=== PATIENT | female | born 1960 | race Caucasian/White ===

== ENCOUNTER 2022-10-12 18:15 | Emergency (ER) | payer OTHER, SELFPAY ==
[2022-10-12] VITALS (8 sets, daily range): BP systolic 139–158; BP diastolic 80–95; PULSE 73–85; RESP 15–26; TEMP 36.8; O2SAT 96–98; BMI 24.0
--- NOTE | 2022-10-12 18:26 | DI.CT.S_ITS ---
PROCEDURE: CT HEAD/BRAIN WO CON INDICATIONS: hit head on thinners TECHNIQUE: Noncontrast 4.5 mm thick angled axial sections acquired from the foramen magnum to the vertex, with coronal and sagittal reformats. For radiation dose reduction, the following was used: automated exposure control, adjustment of mA and/or kV according to patient size. COMPARISON: None. FINDINGS: Image quality: Excellent. CSF spaces: Basal cisterns are patent. No extra-axial fluid collections. The ventricles are symmetric in size and shape. Brain: No intracranial bleeds or masses. There is cerebral volume loss for age, with resultant ventricular and sulcal prominence. There are periventricular and deep white matter chronic small vessel ischemic changes. There is intracranial internal carotid artery atherosclerosis. Skull and face: And occipital soft tissue scalp hematoma is seen. No associated calvarial fracture is seen. Calvarium and visualized facial bones appear intact, without suspicious lesions. Sinuses: Moderate generalized paranasal sinus disease can be seen. IMPRESSION: Occipital scalp hematoma, without associated fracture. No acute intracranial hemorrhage is seen. No acute intracranial process is seen. Dictated by: Oumar Erickson M.D. on 10/12/2022 at 17:45 Approved by: Oumar Erickson M.D. on 10/12/2022 at 17:46
--- NOTE | 2022-10-12 20:06 | ED_ITS ---
HPI - Trauma General Chief Complaint: Trauma Stated Complaint: on blood thinners/head injury/large lump Time Seen by Provider: 10/12/22 19:55 Source: patient Mode of arrival: Ambulatory History of Present Illness HPI narrative: This is a 62-year-old female with history of mechanical aortic valve replacement approximately 20 years ago on warfarin and prior bilateral mastectomy for breast cancer. Patient states this evening around 530 she was walking down to the water to release some baby clams back into the water when she slipped and fell backwards striking her head she felt her head bounced. She states no loss of consciousness, she does not think that she was stunned. She states her scalp hurts she can feel the hematoma but denies headache. Patient states no vision changes. No neck or back pain. No chest pain or shortness of breath. She denies any other injuries. Patient denies any nausea or vomiting, no GI or urinary symptoms, no bowel or bladder incontinence. No numbness, tingling or weakness of her extremities. Patient states no other daily medications besides warfarin. She states that her aortic valve was replaced because it was thickened but she does not recognize the term aortic stenosis and states it was for some other reason. She is had bilateral mastectomy for breast cancer in the past. Patient states she checked her INR a week ago it was 2 she took some extra because it is a little subtherapeutic for her level. She denies tobacco, she does drink alcohol she had 1 drink around noon today. She denies marijuana or illicit. She is unsure if her tetanus is currently up-to-date. Related Data Allergies Allergy/AdvReac Type Severity Reaction Status Date / Time No Known Drug Allergies Allergy Verified 10/12/22 18:21 Review of Systems Review of Systems ROS Unobtainable: All systems reviewed & are unremarkable except as noted in HPI and below Patient History Social History Smoking Status: Never smoker Smoking Status: Never smoker alcohol intake frequency: 0-2 drinks per day Alcohol type: wine Exam Narrative Exam Narrative: GEN: Patient appears in mild distress. HEAD: Patient has hematoma on the posterior scalp, small abrasion no active bleeding, no raccoon/Wells sign. NECK: Nontender, painless range of motion, trachea midline Negative for Nexus criteria, there is no midline line tenderness, distracting injury, altered mental status, neuro deficit EYES: PERRLA, EOMI ENT: External inspection normal, trachea is midline, TM's are normal no hemotypanum, Nares are clear, no septal hematoma, no dental or oral injury, airway is normal and with normal occlusion, No bony tenderness RESP: Chest is nontender and has symmetric movement, no ecchymosis, breath sounds are normal no crackles, wheezes or rales CVS: Heart sounds are normal, no murmur noted, No JVD. ABG/GI: Nontender, soft, normal bowel sounds, no distention, no organomegal NEURO: Oriented AOx3, neuro is grossly intact, sensation and motor is normal all 4 extremities moving, cranial nerves II through XII are intact, GCS is 15 PSYCH: Normal mood and affect SKIN: Intact except for abrasion on scalp. Warm and dry, no crepitus and without decubitus BACK: No CVA tenderness, no vertebral tenderness, no step-off's, no crepitus EXT: Atraumatic, hips are nontender, no pedal edema, normal color and temperature, normal range of motion of extremities with normal tendon exam, 2+ pulses in all four extremities Initial Vital Signs Initial Vital Signs: Vital Signs Temperature 98.3 F 10/12/22 18:21 Pulse Rate 85 10/12/22 18:21 Respiratory Rate 18 10/12/22 18:21 Blood Pressure 158/95 H 10/12/22 18:21 Pulse Oximetry 96 10/12/22 18:21 Oxygen Delivery Method 10/12/22 18:21 Course Orders Ordered: ED Orders 10/12/22 20:20 Prothrombin Time INR Stat Discontinued Medications Diphtheria/Tetanus/Acell Pertussis (Tet,Diph,Pertuss(Acell),Vac/Pf 0.5 Ml Syringe) 0.5 ml IM .ONCE ONE Stop: 10/12/22 20:17 Last Admin: 10/12/22 20:45 Dose: 0.5 ml Documented By: [email or web address] Vital Signs Vital signs: Vital Signs - 8 hr 10/12/22 18:21 10/12/22 18:43 10/12/22 18:40 Temperature 98.3 F Pulse Rate 85 85 Respiratory Rate 18 15 Blood Pressure 158/95 H Pulse Oximetry 96 96 Oxygen Delivery Method Room Air Room Air MDM - Trauma Lab Data Labs: Lab Results 10/12/22 Range/Units 20:20 PT 23.4 H (10.1-12.7) SECONDS INR 2.0 H (0.9-1.3) Imaging Data CT scan - head: Radiologist's Impression: [address] [address] [address] Scan Report Signed Patient: Keila Maldonado MR#: [id number] : 1960 Acct:[id number] Age/Sex: 62 / F Date of Service: 10/12/22 Loc: ED Accession Number: [id number] ?? Procedure: CT head/brain wo con Ordering Provider: Veronique Kent D.O. PROCEDURE:? CT HEAD/BRAIN WO CON ? INDICATIONS:? hit head on thinners ? TECHNIQUE:? Noncontrast 4.5 mm thick angled axial sections acquired from the foramen magnum to the vertex, with coronal and sagittal reformats.? For radiation dose reduction, the following was used:? automated exposure control, adjustment of mA and/or kV according to patient size.? ? COMPARISON:? None. ? FINDINGS:? Image quality:? Excellent.? ? CSF spaces:? Basal cisterns are patent.? No extra-axial fluid collections.? The ventricles are symmetric in size and shape.? ? Brain:? No intracranial bleeds or masses.? There is cerebral volume loss for age, with resultant ventricular and sulcal prominence.? There are periventricular and deep white matter chronic small vessel ischemic changes.? There is intracranial internal carotid artery atherosclerosis.? ? Skull and face:? And occipital soft tissue scalp hematoma is seen.? No associated calvarial fracture is seen.? Calvarium and visualized facial bones appear intact, without suspicious lesions.? ? Sinuses:? Moderate generalized paranasal sinus disease can be seen. ? ? IMPRESSION:? Occipital scalp hematoma, without associated fracture. ? No acute intracranial hemorrhage is seen.? ? No acute intracranial process is seen.? ? ? Dictated by: Oumar Erickson M.D. on 10/12/2022 at 17:45 ? ? Approved by: Oumar Erickson M.D. on 10/12/2022 at 17:46?? MDM Narrative Medical decision making narrative: This is a 62-year-old female with head trauma mechanical ground level fall on warfarin. Patient's head CT is negative, INR is obtained and is 2 she has not had it checked in about a week she did state she bumped up her dose she was 2 and should be 2 and half to 3-1/2. She denies any concussive symptoms currently. She does have an abrasion. Tetanus was updated. Return precautions discussed. Discharge Plan Departure Patient Disposition: Home Clinical Impression: Hematoma of scalp, Abrasion of scalp, Head injury Instructions: DI for Concussion Activity Restrictions/Additional Instructions: Your INR today is 2 You may take Tylenol up to a 1000 mg every 6 hours as needed for headaches for pain. Please return for severe headaches, altered mental status, new vision changes, numbness, tingling weakness difficulty with speech, persistent vomiting, new neck or back pain or other new or concerning changes. Stand Alone Forms: Patient Portal/API
[2022-10-12 20:36] LABS: Prothrombin Time 23.4 SECONDS (10.1-12.7)
[2022-10-12] MEDS: TET,DIPH,PERTUSS(ACELL),VAC/PF 0.5 ML SYRINGE IM (20:45)
== END 2022-10-12 21:02 | disposition home or self-care (01) ==
PROVIDERS: Emergency Provider Emergency Medicine
DX: S00.03XA Contusion of scalp, initial encounter (principal); S00.01XA Abrasion of scalp, initial encounter; W18.30XA Fall on same level, unspecified, initial encounter; Z23 Encounter for immunization; Z79.01 Long term (current) use of anticoagulants
CPT/HCPCS: 36415; 70450; 85610; 90471; 99284; 90715